=== PATIENT | female | born 1995 | race Caucasian/White ===

== ENCOUNTER 2023-10-27 13:00 | Outpatient (CLI) | payer OTHER ==
--- NOTE | 2023-10-27 13:39 | XRAY Report ---
PROCEDURE: Toe(s) 2+V RT INDICATIONS: CONTUSION OF RIGHT GREAT TOE TECHNIQUE: 3 views of the first toe(s) acquired. COMPARISON: None. FINDINGS: Bones: No fractures or dislocations. No suspicious bony lesions. Soft tissues: No suspicious soft tissue densities. IMPRESSION: No visualized acute fracture or dislocation. However, occult injury cannot be excluded. Recommend dunia rt interval imaging follow-up in 7-10 days as clinically indicated for additional evaluation. Reviewed by: Anamika Coppola MD on 10/27/2023 1:38 PM PST Approved by: Anamika Coppola MD on 10/27/2023 1:38 PM [facility] Station ID: [id number]
== END 2023-10-27 13:15 | disposition home or self-care (01) ==
LOC: DI.N 13:00
PROVIDERS: ATTEND Physician Assistant Medical
DX: S90.111A Contusion of right great toe without damage to nail, initial encounter (principal)